=== PATIENT | male | born 1985 | race African-American/Black ===

== ENCOUNTER 2018-11-15 19:39 | Emergency (ER) | payer OTHER ==
[2018-11-15 20:13] VITALS: BP 141/95
--- NOTE | 2018-11-15 20:32 | UC ---
Dental HPI - HPI Summary HPI Summary: Patient had dental work completed one week ago, complaining of a strange feeling in the left side of the angle of the mandible and fullness and pressure in the left side of his neck, he states it feels like the sutures are irritating him. he is not complaining of pain, but irritation and fullness on the left side of his face and neck. - History of Current Complaint Chief Complaint: UCDentalProblem Stated Complaint: DENTAL COMPLAINT Time Seen by Provider: 11/15/18 20:17 Hx Obtained From: Patient Onset/Duration: Sudden Onset, Lasting Weeks - 1 Severity: Severe Pain Intensity: 7 Related History: Previous Dental Care on Same Tooth - Allergies/Home Medications Allergies/Adverse Reactions: Allergies Allergy/AdvReac Type Severity Reaction Status Date / Time No Known Allergies Allergy Verified 11/15/18 20:02 Home Medications: Home Medications Buprenorp/Nalox 8-2 MG SL TAB [Suboxone 8-2 mg SL TAB*] 1 tab SL BID 11/15/18 [ History Confirmed 11/15/18] Ibuprofen TAB* [Motrin TAB* 800 MG] 800 mg PO Q6H PRN 11/15/18 [History Confirmed 11/15/18] PMH/Surg Hx/FS Hx/Imm Hx Previously Healthy: Yes Other History Of: Hepatitis C - Surgical History Surgical History: Yes Surgery Procedure, Year, and Place: CHOLYCYSTECTOMY. DENTAL EXTRACTIONS - Family History Known Family History: Positive: Hypertension - Social History Alcohol Use: None Substance Use Type: Other Substance Use Comment - Amount & Last Used: IN [facility] [employer] Smoking Status (MU): Heavy Every Day Tobacco Smoker Type: Cigarettes Amount Used/How Often: 1 PPD Have You Smoked in the Last Year: Yes Household Exposure Type: Cigarettes Review of Systems All Other Systems Reviewed And Are Negative: Yes ENT: Positive: Dental Pain, Ear Ache Psychological: Positive: Anxious Is Patient Immunocompromised?: No Physical Exam Triage Information Reviewed: Yes Appearance: Ill-Appearing, Pain Distress, Thin Vital Signs: Initial Vital Signs Temp 98.9 F 11/15/18 20:05 Pulse 102 11/15/18 20:05 Resp 20 11/15/18 20:05 BP 141/95 11/15/18 20:05 Pulse Ox 99 11/15/18 20:05 Vital Signs Reviewed: Yes Eye Exam: Normal ENT: Positive: Pharyngeal erythema, Other - bilateral external canals with white exudate and dried cerumen, Dental: Positive: Other: - he has not teeth left, all have been removed, no sign of infection, oral cavity is pink Neck: Positive: Enlarged Nodes @ - left side of neck is red and cervical lymphadenopathy Respiratory Exam: Normal Respiratory: Positive: Chest non-tender, Lungs clear, Normal breath sounds Cardiovascular Exam: Normal Cardiovascular: Positive: RRR, No Murmur Abdominal Exam: Normal Abdomen Description: Positive: Nontender, No Organomegaly, Soft Bowel Sounds: Positive: Present Musculoskeletal Exam: Normal Neurological Exam: Normal Psychological Exam: Normal Skin Exam: Normal Dental Complaint Course/Dx - Course Course Of Treatment: hx obtained, exam performed, meds reviewed, ear irrigation of left ear. ciprodex prescribed, advised he call his dentist to check on the irritation in the mouth - Differential Dx/Diagnosis Provider Diagnosis: Bilateral otitis externa, Cervical lymphadenopathy, Needs assistance with dental care Discharge - Sign-Out/Discharge Documenting (check all that apply): Patient Departure All imaging exams completed and their final reports reviewed: No Studies - Discharge Plan Condition: Stable Disposition: HOME Patient Education Materials: Otitis Externa (ED) Referrals: No Primary Care Phys,NOPCP [Primary Care Provider] - Additional Instructions: 1. use the ear drops as prescribed. 2. follow up with your dentist 3. warm compresses to the left side of the neck 4. continue with the ibuprofen as needed for pain. - Billing Disposition and Condition Condition: STABLE Disposition: Home
== END 2018-11-15 21:22 | disposition home or self-care (01) ==
LOC: UCCORT 19:39
DX: H60.93 Unspecified otitis externa, bilateral (principal); R59.1 Generalized enlarged lymph nodes; F17.210 Nicotine dependence, cigarettes, uncomplicated
CPT/HCPCS: 99213; G0463